=== PATIENT | male | born 1995 | race Caucasian/White ===

== ENCOUNTER 2017-01-28 10:07 | Emergency (ER) | payer OTHER ==
[2017-01-28 10:12] VITALS: RESP 16
[2017-01-28] MEDS ORDERED: ACETAMINOPHEN TAB 500 MG TAB PO STA (11:03)
[2017-01-28] MEDS ORDERED: ONDANSETRON ODT 4 MG TAB PO STA (11:03)
[2017-01-28] MEDS ORDERED: KETOROLAC 60 MG/2 ML VIAL IM STA (11:03)
--- NOTE | 2017-01-28 11:36 | ED ---
General Adult HPI - General Chief complaint: Fever Stated complaint: SORE THROAT, VOMITING, FEVER Time Seen by Provider: 01/28/17 10:35 Source: patient, RN notes reviewed, old records reviewed Mode of arrival: ambulatory Limitations: no limitations - History of Present Illness Initial comments: This is a 22-year-old male the ER for evaluation of fever. Patient has no medical history takes no medications, both numbers that he shares a house with her sick. Patient comes in with generalized body aches nausea vomiting and not feeling well. Denies shortness of breath or chest pain. No abdominal pain, known diarrhea - Related Data Previous Rx's Medication Instructions Recorded Ondansetron [Zofran] 4 mg PO Q8HR PRN #30 tab 01/28/17 Allergies Allergy/AdvReac Type Severity Reaction Status Date / Time No Known Allergies Allergy Verified 01/28/17 10:12 Review of Systems ROS Statement: Those systems with pertinent positive or pertinent negative responses have been documented in the HPI. ROS Other: All systems not noted in ROS Statement are negative. Past Medical History Past Medical History: Asthma History of Any Multi-Drug Resistant Organisms: None Reported Past Surgical History: No Surgical Hx Reported Past Psychological History: No Psychological Hx Reported Smoking Status: Current every day smoker Past Alcohol Use History: Occasional Past Drug Use History: None Reported General Exam Limitations: no limitations General appearance: alert, in no apparent distress Head exam: Present: atraumatic, normocephalic, normal inspection Eye exam: Present: normal appearance, PERRL, EOMI. Absent: scleral icterus, conjunctival injection, periorbital swelling ENT exam: Present: normal exam, mucous membranes moist Neck exam: Present: normal inspection. Absent: tenderness, meningismus, lymphadenopathy Respiratory exam: Present: normal lung sounds bilaterally. Absent: respiratory distress, wheezes, rales, rhonchi, stridor Cardiovascular Exam: Present: regular rate, normal rhythm, normal heart sounds. Absent: systolic murmur, diastolic murmur, rubs, gallop, clicks GI/Abdominal exam: Present: soft, normal bowel sounds. Absent: distended, tenderness, guarding, rebound, rigid Extremities exam: Present: normal inspection, full ROM, normal capillary refill. Absent: tenderness, pedal edema, joint swelling, calf tenderness Back exam: Present: normal inspection Neurological exam: Present: alert, oriented X3, CN II-XII intact Psychiatric exam: Present: normal affect, normal mood Skin exam: Present: warm, dry, intact, normal color. Absent: rash Course Vital Signs 01/28/17 01/28/17 01/28/17 10:09 11:38 11:52 Temperature 98.7 F 99.6 F 98.4 F Pulse Rate 100 74 Respiratory 16 16 Rate Blood Pressure 133/80 133/78 O2 Sat by Pulse 99 98 Oximetry Medical Decision Making - Medical Decision Making 22 male year for evaluation of fever and body aches. Patient has known sick contacts including family members positive for flu. Patient can be discharged home Disposition Clinical Impression: Influenza, Fever Disposition: HOME SELF-CARE Condition: Good Instructions: Fever in Adults (ED), Influenza (ED) Prescriptions: Ondansetron [Zofran] 4 mg PO Q8HR PRN #30 tab PRN Reason: Nausea And Vomiting Referrals: None,Stated [Primary Care Provider] - 1-2 days
[2017-01-28 11:53] VITALS: BP 133/78; PULSE 74; TEMP 98.4
== END 2017-01-28 12:00 | disposition home or self-care (01) ==
LOC: EC 10:07
DX: J11.1 Influenza due to unidentified influenza virus with other respiratory manifestations (principal); J45.909 Unspecified asthma, uncomplicated; F17.200 Nicotine dependence, unspecified, uncomplicated
CPT/HCPCS: 99283; 96372; J1885